=== PATIENT | female | born 1950 | race Caucasian/White ===

== ENCOUNTER → 2017-01-15 | Outpatient (CLI) | payer OTHER ==
[~2017-01-15] MED LIST: FLM4 PO; GLC/500 PO; HYZ/50125 PO; ULT50X PO; URC10 PO
--- NOTE | 2017-01-18 12:29 | MAMMOGRAPHY REPORT ---
BILATERAL DIGITAL SCREENING MAMMOGRAM WITH CAD: 01/15/2017 TECHNIQUE: Current study was also evaluated with a Computer Aided Detection (CAD) system. Bilateral CC and MLO views were obtained. COMPARISON: Comparison is made to exams dated: 03/12/2015 mammogram, 12/13/2013 mammogram, 10/18/2012 roxann mogram, 09/07/2011 mammogram, 09/03/2010 mammogram - [facility], and 09/19/2008. BREAST COMPOSITION: There are scattered areas of fibroglandular density in both breasts. FINDINGS: No suspicious masses, calcifications, or areas of architectural distortion are noted in ei ther breast. There has been no significant interval change compared to prior exams. Bilateral asymme tries are stable, including a nodular asymmetry in the left superior breast middle depth on the MLO v iew which is stable dating back to the 2007 exam. IMPRESSION: ACR BI-RADS CATEGORY 2: BENIGN There is no mammographic evidence of malignancy. A 1 year screening mammogram is recommended. The pa tient will receive written notification of the results. Approximately 10% of breast cancers are not detected with mammography. A negative mammographic report should not delay biopsy if a clinically suggestive mass is present. Sandra Burgos M.D. ah/:01/15/2017 16:14:56 Neon Sign Installer: Katheryn HANSEN)(M), [facility] letter sent: Normal 1/2 BI-RADS Code: ACR BI-RADS Category 2: Benign
== END | disposition home or self-care (01) ==
LOC: C.MAMM 12:45
PROVIDERS: ATTEND Obstetrics & Gynecology
DX: Z12.31 Encounter for screening mammogram for malignant neoplasm of breast (principal)

== ENCOUNTER 2021-09-02 08:31 | Observation (INO) ==
--- NOTE | 2021-03-20 10:28 | PAT Medication Instructions ---
Medication Instructions Date of Service March 20, 2021 Home Medications Medication Instructions Recorded 3-in-1 Commode #1 ea 03/13/21 Wheeled Walker #1 ea 03/13/21 aspirin 81 mg tablet 81 mg PO QAM cholecalciferol (vitamin D3) 25 mcg (1,000 unit) tablet (Vitamin D3) 25 mcg PO QDL dulaglutide 0.75 mg/0.5 mL subcutaneous pen injector (Trulicity) 0.75 mg SUBCUT WK losartan 50 mg-hydrochlorothiazide 12.5 mg tablet 1 tab PO QAM metformin 500 mg tablet 1,000 mg PO BID Centrum Silver Women 1 tab PO QDL rosuvastatin 5 mg tablet 5 mg PO 2XWK Continue as directed dulaglutide 0.75 mg/0.5 mL subcutaneous pen injector (Trulicity) 0.75 mg SUBCUT WK rosuvastatin 5 mg tablet 5 mg PO 2XWK DO NOT take the morning of surgery cholecalciferol (vitamin D3) 25 mcg (1,000 unit) tablet (Vitamin D3) 25 mcg PO QDL losartan 50 mg-hydrochlorothiazide 12.5 mg tablet 1 tab PO QAM metformin 500 mg tablet 1,000 mg PO BID Centrum Silver Women 1 tab PO QDL Take morning of surgery With a small sip of water, OTHERWISE NOTHING TO EAT OR DRINK AFTER MIDNIGHT: aspirin 81 mg tablet 81 mg PO QAM (continue as normal unless told otherwise by surgeon) Take evening before surgery metformin 500 mg tablet 1,000 mg PO BID Other Notes If you have any questions please call us at [phone] or [phone] or [phone] or [phone]
--- NOTE | 2021-03-21 13:24 | Anesthesiology Consultation ---
Date of Service March 21, 2021 Assessment & Plan (1) Encounter for pre-operative examination: - COVID screening: Per assessment on 03/21: Travel screen negative, no known COVID-19 positive contacts or current COVID-19 related symptoms. Patient vaccin ated. Surgeon arranging preop COVID testing. Awaiting results. 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 Reviewed with Dr. Mohamud. He does not feel that further cardiology evaluation and/or testing needed prior to surgery from his perspective. Chart Review Chart Review: Acceptable Risk for Surgery and Patient seen in Pre Admission Testing Teaching & Discussion Pre-Anesthesia Teaching/Discussion Notes: Instructed NPO after midnight before surgery,except medications with 15 cc of water. Medication instructions provided according to the PAT guidelines. History Surgery Operation Date: 04/15/21 07:00 Proposed Procedures p Right Total Knee Arthroplasty - Yony Marks MD Height/Weight Height: 5 ft 4 in Weight: 106 kg Allergies Allergy/AdvReac Type Severity Reaction Status Date / Time erythromycin base Allergy Intermediate Dyspnea Verified 03/20/21 16:22 ciprofloxacin Allergy Mild Rash Verified 03/20/21 16:22 nitrofurantoin Allergy Unknown Unknown Verified 03/18/21 14:49 lisinopril AdvReac Mild Cough Verified 03/20/21 16:22 Medications Home Medications Medication Instructions Recorded Confirmed Last Taken aspirin 81 mg tablet 81 mg PO QAM tab 03/18/19 03/18/21 Unknown 3-in-1 Commode #1 ea 03/13/21 03/18/21 Unknown Wheeled Walker #1 ea 03/13/21 03/18/21 Unknown cholecalciferol (vitamin D3) 25 25 mcg PO QDL 03/18/21 03/18/21 Unknown mcg (1,000 unit) tablet (Vitamin D3) dulaglutide 0.75 mg/0.5 mL 0.75 mg SUBCUT WK 03/18/21 03/18/21 Unknown subcutaneous pen injector (Trulicity) losartan 50 mg-hydrochlorothiazide 1 tab PO QAM 03/18/21 03/18/21 Unknown 12.5 mg tablet metformin 500 mg tablet 1,000 mg PO BID 03/18/21 03/18/21 Unknown multivit with 1 tab PO QDL 03/18/21 03/18/21 Unknown xzsopgcr-cflj-KI-lutein 8 mg iron-400 mcg-300 mcg tablet (Centrum Silver Women) rosuvastatin 5 mg tablet 5 mg PO 2XWK 03/18/21 03/18/21 Unknown Past Medical History Medical History BCC (basal cell carcinoma of skin) s/p excision CVA (cerebral vascular accident) Incidental findings of old infarct on head imaging several years DM type 2 (diabetes mellitus, type 2) NIDDM Endometrioid adenocarcinoma of uterus Dx 2012 Endometriosis GERD (gastroesophageal reflux disease) Occasional H/O hiatal hernia Hearing loss of both ears Hearing aids b/l History of COVID-19 Dx 05/2021 > symptoms at time of abdominal pain, elevated glucoses, headache, insomnia > resolved History of renal stone 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 Grandmother (Maternal) Colorectal cancer Mother Colorectal cancer Other No family history of adverse response to anesthesia Past Surgical History Surgical History H/O section H/O colonoscopy H/O dilation and curettage Multiple H/O laparoscopy Dx History of esophagogastroduodenoscopy (EGD) History of melanoma excision History of tonsillectomy History of tooth extraction History of wisdom tooth extraction S/P MIRIAN-BSO (total abdominal hysterectomy and bilateral salpingo-oophorectomy) Ace (2012) Past Anesthesia History No Hx of Anesthesia Complications and No Family Hx of Anesthesia Complications History of PONV No Hx of PONV and Hx of Motion Sickness (Occasional remote hx) Social History Smoking Status: Former smoker Do You Dip or Chew Tobacco: No Smoking End Date: Quit 12yrs ago (hx tobacco use < 1 PPD x 20 years) Hx Alcohol Use: Yes alcohol intake frequency: holidays/special occasions only Hx Substance Use: No substance use type: does not use Review of Systems Patient denies chest pain, shortness of breath, dyspnea on exertion, fever, chills, cough, wheezing, palpitations. Physical Exam Vital Signs VITALS BP 111/73 P 86 TEMP 97.3 SP02 95%RA RESP 16 PHYSICAL Full cervical extension range of motion. Full TMJ range of motion. TMD 3 finger breaths Mallampati Score 3 Dentition: several missing including lower front, possible chipped teeth/poor dentition per patient, + crowns Lungs: clear throughout to auscultation Cardiac: regular rate and rhythm, no murmurs noted Spine: normal Carotid arteries: negative bruit Extremities: no edema Lab Results Anesthesia Preop Results Results Anesthesia Widget: WBC 12.19 K/uL (4.8-10.8) H 03/21/21 Hgb 12.0 g/dL (12.0-16.0) 03/21/21 Hct 36.6 % (37-47) L 03/21/21 Plt 403 K/uL (130-400) H 03/21/21 Na 139 mmol/L (136-145) 03/21/21 K 3.7 mmol/L (3.5-5.1) 03/21/21 Cl 106 mmol/L (98-107) 03/21/21 CO2 27 mmol/L (21-32) 03/21/21 BUN 20 mg/dl (7-18) H 03/21/21 Creat 0.69 mg/dl (0.6-1.2) 03/21/21 Glucose Level 102 mg/dl (70-99) H 03/21/21 PT 10.6 Seconds (9.0-12.0) 03/21/21 PTT 25.0 Seconds (21.0-31.0) 03/21/21 INR 1.0 (0.9-1.1) 03/21/21 HA1c 7.5 % (4.5-5.6) H 03/21/21 Blood Type O Negative 03/21/21 Antibody Screen NEGATIVE 03/21/21 Lab Comments: Elevated WBC/hgba1c > will fax preop labs to PCP for continuity of care. Testing Electrocardiogram Date: 03/21/21 NSR at 80bpm. Rightward axis. Chest X-Ray Date: 03/21/21 Findings: + NAD
--- NOTE | 2021-08-30 19:01 | History and Physical Report ---
DATE OF ADMISSION: 09/02/2021. CHIEF COMPLAINT: Bilateral knee pain and discomfort, right side greater than left. HISTORY OF PRESENT ILLNESS: The patient is a 71-year-old female who presents for surgical treatment of her right knee. She has got a long history of knee problems treated extensively by multiple physi cians over the years. Most recently, she has been seen by Dr. Quintana. Shots provided some temporar y relief only and became less successful over time. She has global pain. The right knee is botherin g more than the left. It hurts her all the time. The more she walks, the more it hurts. It hurts m ore at the end of the day. She would like to have her knee fixed. She has been scheduled for surger y in the past, but canceled due to COVID epidemic. PAST MEDICAL HISTORY: Significant for: 1. Diabetes. 2. History of TIA, on aspirin. 3. Gastroesophageal reflux disease. 4. Obesity with BMI of 40. 5. Hiatal hernia. 6. Endometrial cancer. PAST SURGICAL HISTORY: Includes: 1. . 2. Laparoscopy. 3. MIRIAN/BSO. ALLERGIES: CIPRO, LISINOPRIL, ERYTHROMYCIN. CURRENT MEDICATIONS: Include: 1. Aspirin. 2. Diflucan. 3. Losartan. 4. Mobic. 5. Metformin. 6. Simvastatin. SOCIAL HISTORY: A 71-year-old female. Lives by herself. Does not smoke. No alcohol intake. FAMILY HISTORY: Noncontributory. REVIEW OF SYSTEMS: Significant for diabetes. She has a history of some TIAs, but no sequelae. On as pirin. No history of DVT or PE. PHYSICAL EXAMINATION: GENERAL: Shows a pleasant middle-aged female. Looks to be in reasonably good health. HEENT: Benign. NECK: Supple. No lymphadenopathy. LUNGS: Clear to auscultation. HEART: Has a regular rate and rhythm. ABDOMEN: Soft, nontender, nondistended. EXTREMITIES: Grossly neurovascularly intact except as follows. Examination of both knees revealed patient walks with a bit of a waddling gait. Examination of the r ight knee reveals varus deformity. It is tender with medial joint line. Small knee effusion. Range of motion about 10-110. No pain with hip motion. Examination of the left knee reveals varus deformity. Moderate soft tissue envelope. Tender with me dial joint line. Range of motion 5-125. No instability. X-RAYS: X-rays of both knees reveal advanced bilateral knee DJD. She has got complete loss of media l joint space in both knees with some tibial femoral subluxation. She has subchondral sclerosis. ASSESSMENT: A 71-year-old female with a history of diabetes, hypertension, transient ischemic attack s, gastroesophageal reflux disease and obesity with advanced bilateral knee degenerative joint diseas e. The right side is more symptomatic than the left. She has failed conservative treatment and woul d like to have her right knee replaced. PLAN: We are going to take her to the operating room and do a right total knee replacement. The ris ks and benefits of this procedure were explained to the patient include but not limited to DVT, PE, d eath, infection, neurological injury, vascular injury, bleeding problem, pain, limited range of motio n, stiffness, failure to relieve her symptoms, incomplete relief of symptoms, etc. The patient under stands and desires to proceed. Informed consent was obtained. We did talk to her about holding her metformin on the morning of surgery. Lives by herself, so she m ight need to go to a rehab postoperatively. Her daughter is going to come and stay with her at some point. Job ID: [id number]
[~2021-09-02 08:31] MED LIST changes: +ACETAMINOPHEN 500 MG TAB PO SCH; +ATROPINE SULFATE 0.1 MG/ML 10ML SYR IV PRN; +BUPIVACAINE 0.5 % 5 MG/1 ML PF 10ML VIAL ONE; +BUPIVACAINE LIPOSOME/PF 266 MG, BUPIVACAINE/EPINEPHRINE 50 ML, SODIUM CHLORIDE 0.9% 30 ... INFIL SCH; +EPINEPHrine INJ 1 MG/ML AMP ONE; +FAMOTIDINE 20 MG TAB PO SCH; -FLM4 PO; +GABAPENTIN 300 MG CAP PO SCH; -GLC/500 PO; +HYDROmorphone INJ 1 MG/ML SYRINGE IV PRN; -HYZ/50125 PO; +LABETALOL HCL IV 5 MG/ML 20ML IV PRN; +LR 500ML BOLUS, THEN 15ML/HR IV SCH; +LR 60ML/HR IV SCH; +MEPERIDINE HCL 25 MG/ML CARP/VIAL IV PRN; +METOCLOPRAMIDE HCL 10 MG TABLET PO SCH; +ONDANSETRON INJ 2 MG/ML 2 ML VIAL IV PRN; +PHENYLEPHRINE 100MCG/ML 5ML SYR IV PRN; +ROPIVACAINE 0.5% 5 MG/ML 30 ML VIAL ONE; +TRANEXAMIC ACID 1,000 MG **IV Intra-op IV SCH; -ULT50X PO; -URC10 PO; +ceFAZolin 2000MG 2,000 MG/15 ML SYR IV SCH; +ePHEDrine sulfate 50 MG/ML AMP IV PRN; +fentaNYL citrate 100 MCG/2 ML VIAL IV PRN
--- NOTE | 2021-09-02 08:57 | History & Physical Bridge Note ---
Date of Service September 02, 2021 History & Physical Bridge Note I have examined the patient, reviewed the History & Physical and in the interval since the performance of the History & Physical I have noted the following changes of clinical significance: no changes noted
[2021-09-02] MEDS ORDERED: MIDAZOLAM HCL 1 MG/ML 2ML VIAL ONE (09:33)
[2021-09-02] MEDS ORDERED: BUPIVACAINE 0.5 % 5 MG/1 ML PF 10ML VIAL ONE (10:26)
[2021-09-02] MEDS ORDERED: BUPIVACAINE LIPOSOME 1.3% 266 MG/20 ML VIAL ONE (11:31)
[2021-09-02] MEDS ORDERED: SODIUM CHLORIDE 0.9% PF 50 ML VIAL ONE (11:31)
[2021-09-02] MEDS ORDERED: BUPIVACAINE/EPINEPHRINE 0.25% 1:200,000 30 ML VIAL ONE (11:31)
[2021-09-02] MEDS ORDERED: LIDOCAINE 2% 2 ML VIAL/AMP(20MG/ML) INFIL ONE (12:12)
[2021-09-02] MEDS ORDERED: ONDANSETRON INJ 2 MG/ML 2 ML VIAL ONE (12:12)
[2021-09-02] MEDS ORDERED: PROPOFOL IV EMULSION 10 MG/ML 20 ML VIAL IV ONE (12:12)
--- NOTE | 2021-09-02 13:34 | Operative Report ---
PG Post Operative Report Pre & Post Diagnosis Operation Date: 05/07/21 07:15 <No data on this case meets the specified criteria> Operation Date: 09/02/21 10:40 Pre-Op Diagnosis: Right Knee Advanced Degenerative Joint Disease Post-Op Diagnosis: Right Knee Advanced Degenerative Joint Disease I identified the patient and participated in the time-out.: Yes Procedure Operation Date: 05/07/21 07:15 <No data on this case meets the specified criteria> Operation Date: 09/02/21 10:40 Actual Procedures p Right Total Knee Arthroplasty(Right) - Yony Marks MD Surgeon Yony Marks MD Sql Engineer Dejuan Kiran PA-C Estimated Blood Loss 50 Findings Consistent with Post-Op Diagnosis Operative findings were advanced right knee DJD. She had extensive grade 4 b one-on-bone disease in all 3 compartments with most severe findings medially. Osteophytes in all 3 compartments. Moderate-sized joint effusion. Fluids 1000 cc Specimens Right knee sent for pathology Anesthesia Type Spinal MAC Complications none Disposition Accompanied Patient To Recovery: No Indications Patient is a 71-year-old female said a long history of bilateral knee pain discomfort right side been a bit worse than left. She has been through extensive conservative treatment over the years which became less successful over time. X-rays show advanced right knee DJD. She elected to a surgical treatment. Description of Procedure Operative implants consist of: 1. Biomet Vanguard size 62.5 right posterior stabilized femoral component. 2. Biomet size 71 tibial tray. 3. 10 mm posterior stabilized polyethylene insert. 4. 28 x 8 all polypatella. Patient was taken to the operating, identified, placed on the operating table supine position with all contractors were properly padded. IV antibiotics tried by anesthesia team. A spinal anesthetic and abductor canal block had provided holding area. Gant catheter was placed in sterile fashion. Right thigh turn was then placed in the right lower extremities and prepped draped in usual sterile fashion. The right leg was elevated exsanguinated with use of an Esmarch in terms playset 300 mmHg. An anterior approach to the right knee was then performed to longitudinal incision centered over the patella. Sharp dissection was carried through subcutaneous tissue down to the extensor mechanism. A medial parapatellar arthrotomy incision was made. Some subperiosteal dissection was carried out medially. The fat pad was resected beneath patella tendon. Lateral patellofemoral ligament was released. Patella was subluxated laterally. The knee was flexed. The osteophytes were taken off distal femur. The ACL and PCL were then released in the distal femur the tibia subluxated anteriorly. The external tibial alignment jig was then placed in the interface the tibia and adjusted 14 mm medially. Proximal tibial cut was made remove about 2 to 3 mm of bone from the medial side. The tibia sized to a size 71. Some osteophytes taken off medial and posterior medially. Attention drawn the femur. The distal femur then with a sharp drop with intramedullary canal was suction. A right 5 degree valgus cutting guide was placed. Distal femoral cutting block was pinned in place. Distal femoral cut was made to take an additional 3 mm of bone off the distal femur. The femur was then sized to a size 62.5. The AP cutting block was pinned parallel to the epicondylar axis which was 3 degrees of external rotation. The anterior cut, anterior chamfer, posterior cut, posterior chamfer cuts were made. The box cutting guide was placed and adjusted slightly lateral and the box cut was made. The knee was flexed. The remnants of the medial and lateral menisci were excised. The osteophytes were taken off the posterior aspect of the femur. A trial femoral component was placed. The tibial tray was pinned in maximum external rotation and the drill and stem punch used to create defect in proximal tibia for the tibial tray. Knee was then trialed the 10 mm insert fit most appropriately. Attention drawn the patella. Patella was cleaned of all soft tissues. Patella thickness measured 22 mm in thickness was cut down to 13. Was sized to a size 28 patella. The lug holes were drilled for the 28 patella. Lateral osteophytes removed. Patella button was placed. Knee was taken through range of motion patella tracked nicely with no thumbs test. Attention drawn to placing permanent components. All trial components were removed. Bone plug was placed in the distal femur limit blood loss. A double batch of Palacos G cement was mixed. A Biomet Vanguard size 62.5 right posterior stabilized femoral component, size 71 tibial tray, 10 mm posterior stabilized polyethylene insert, and a 28 x 8 all polypatella then cemented in place. The knee was brought out into full extension until cement hardened. Final cement checkup then performed. The pericapsular tissues were injected with total 100 cc of combination of 20 cc of Exparel, 30 cc of normal saline, 50 cc of quarter percent Marcaine with epinephrine. The tourniquet was then let down for tourniquet time 56 minutes. Hemostasis surgeons electrocautery. The extensor mechanism then closed with combination 1 PDS suture #1 Vicryl suture in [id number] fashion. Extensor mechanism checked found to be intact. The subcutaneous tissue then closed with 2 Dexon suture in a buried interrupted fashion. Skin was closed skin tania. Leg was then cleaned and dried and sterile dressed with Xeroform, 4 x 4's, sterile cast padding, Kade bandage were applied. Patient then transferred to the recovery room in stable condition. Patient tolerated procedure well and there were no complications. Dejuan Kiran, my physician television production assistant, was present for the entire procedure. His assistance was essential and required for appropriate patient positioning, prepping and draping, surgical exposure, performing the technical details of the operation, placement the implants, closure of the wound, and placement of the sterile bandage. I attest to the content of the Intraoperative Record and any orders documented therein. Any exceptions are noted below.
[2021-09-02] MEDS ORDERED: GLUCAGON FOR INJ 1 MG VIAL SQ PRN (13:35)
[2021-09-02] MEDS ORDERED: GLUCOSE 10 TABS/TUBE PO PRN (13:35)
[2021-09-02] MEDS ORDERED: DEXTROSE 50% 50 ML SYRINGE IV PRN (13:35)
[2021-09-02] MEDS ORDERED: CARBOHYDRATES FOR HYPOGLYCEMIA PO PRN (13:35)
[2021-09-02] MEDS ORDERED: GLUCOSE 40% GEL 15 GM TUBE PO PRN (13:35)
--- NOTE | 2021-09-02 13:50 | XRay Report ---
RIGHT KNEE 2 VIEWS History: Right total knee arthroplasty. Degenerative arthritis. Postop. FINDINGS: The patient is status post a right total knee arthroplasty. The hardware is intact. No frac ture or dislocation. Skin tania are in place. IMPRESSION: Right total knee arthroplasty. No evidence for hardware complication. ACT 112: Negative or not required by law. Electronically signed by: Mike Martinez M.D. 09/02/2021 1:49 PM
--- NOTE | 2021-09-02 14:30 | Anesthesiology Progress Note ---
Date of Service September 02, 2021 Anesthesia Post Procedure Vital Signs Vital Signs: Temp Pulse Pulse Resp BP Pulse Ox 09/02/21 14:15 75 21 129/65 100 09/02/21 14:05 66 20 127/52 L 100 09/02/21 13:55 56 L 13 117/52 L 100 09/02/21 13:45 71 15 129/61 100 09/02/21 13:35 72 13 120/52 L 100 09/02/21 13:29 97.7 F 63 12 117/52 L 99 09/02/21 09:21 98.1 F 88 20 159/79 H 95 Transfer of Care Handoff Completed per policy Notes Mental Status: alert / awake / arousable and participated in evaluation Patient Amnestic to Procedure: Yes Nausea / Vomiting: adequately controlled Pain: adequately controlled Airway Patency, RR, SpO2: stable & adequate BP & HR: stable & adequate Hydration State: stable & adequate Neuraxial Anesthesia: was administered and sensory block is resolving Anesthetic Complications: no major complications apparent and Pt Satisfied with anesthetic care
[2021-09-02] MEDS ORDERED: PHARMACY GLYCEMIC MGMT CONSULT PRN (14:52)
[2021-09-02] MEDS ORDERED: HYDROmorphone INJ 0.5 MG/0.5 ML SYR IV PRN (14:52)
[2021-09-02] MEDS ORDERED: MAGNESIUM HYDROXIDE SUSP 30 ML UDC PO PRN (14:52)
[2021-09-02] MEDS ORDERED: ALUMINUM/MAGNESIUM SUSP 30 ML UDC PO PRN (14:52)
[2021-09-02] MEDS ORDERED: NON-FORMULARY MEDICATION (Amino Acids [Amino Acid] Capsule) PO SCH (14:52)
[2021-09-02] MEDS ORDERED: METOCLOPRAMIDE HCL INJ 5 MG/ML 2 ML VIAL IV PRN (14:52)
[2021-09-02] MEDS ORDERED: bisacodyL 10 MG SUPP PR PRN (14:52)
[2021-09-02] MEDS ORDERED: NALOXONE HCL 0.4 MG/1 ML VIAL/CARP IV PRN (14:52)
[2021-09-02] MEDS: oxyCODONE HCL IR 5 MG TAB (IMMEDIATE RELEASE) PO PRN (15:16)
[2021-09-02] MEDS ORDERED: ONDANSETRON 4 MG OD TAB PO PRN (15:40)
[2021-09-02] MEDS: SODIUM CHLORIDE 0.9% 1000ML 1,000 ML IV SCH (15:48)
[2021-09-02] MEDS: ACETAMINOPHEN 500 MG TAB PO SCH ×2 (16:58→23:04)
[2021-09-02] MEDS: KETOROLAC TROMETHAMINE 15 MG/ML VIAL IV SCH ×2 (16:59→23:04)
[2021-09-02] MEDS: INSULIN ASPART PER UNIT SC SCH ×2 (17:57→21:27)
[2021-09-02] MEDS ORDERED: TRANEXAMIC ACID / 0.7% NACL 1,000 MG/100 ML BAG IV SCH (19:30)
[2021-09-02] MEDS: ceFAZolin 2000MG 2,000 MG/15 ML SYR IV SCH (20:15)
[2021-09-02] MEDS: DOCUSATE SODIUM 100 MG CAP PO SCH (20:19)
[2021-09-02] MEDS: SENNA 8.6 MG TAB PO SCH (20:19)
[2021-09-02] MEDS: ASPIRIN 81 MG ECTAB PO SCH (20:20)
[2021-09-02] MEDS: ONDANSETRON INJ 2 MG/ML 2 ML VIAL IV PRN (20:46)
[2021-09-03] MEDS: KETOROLAC TROMETHAMINE 15 MG/ML VIAL IV SCH ×4 (03:53→21:13)
[2021-09-03] MEDS: ceFAZolin 2000MG 2,000 MG/15 ML SYR IV SCH (03:53)
[2021-09-03] MEDS: SODIUM CHLORIDE 0.9% 1000ML 1,000 ML IV SCH (03:54)
[2021-09-03] MEDS: ACETAMINOPHEN 500 MG TAB PO SCH ×3 (05:22→21:12)
[2021-09-03 06:04] LABS: Hematocrit (blood only) 30.5 % (37-47); Hemoglobin 9.9 g/dL (12.0-16.0); Mean Corpuscular Hemoglobin 28.2 pg (25-34); Mean Corpuscular Hgb Conc 32.5 g/dL (32-36); Mean Corpuscular Volume 86.9 fL (80-100); Mean Platelet Volume 9.5 fL (7.4-10.4); Platelet Count 314 K/uL (130-400); RDW Coefficient of Variation 14.7 % (11.5-14.5); RDW Standard Deviation 46.4 fL (36.4-46.3); Red Blood Count 3.51 M/uL (4.2-5.4); White Blood Count 12.21 K/uL (4.8-10.8)
[2021-09-03 06:25] LABS: BUN Creatinine Ratio 34.6 (10-20); Calcium 8.4 mg/dl (8.5-10.1); Creatinine Clr Calc Pharmacy 77.9 ml/min; Potassium 3.2 mmol/L (3.5-5.1)
[2021-09-03] MEDS: oxyCODONE HCL IR 5 MG TAB (IMMEDIATE RELEASE) PO PRN ×3 (07:47→22:12)
[2021-09-03] MEDS: LOSARTAN/HCTZ 50/12.5MG TAB PO SCH (07:48)
[2021-09-03] MEDS: DOCUSATE SODIUM/SENNA 50/8.6MG TAB PO SCH (07:48)
[2021-09-03] MEDS: DOCUSATE SODIUM 100 MG CAP PO SCH ×2 (07:48→21:12)
[2021-09-03] MEDS: ASPIRIN 81 MG ECTAB PO SCH ×2 (07:48→21:08)
[2021-09-03] MEDS ORDERED: MULTIVITAMIN TAB PO SCH (09:00)
[2021-09-03] MEDS ORDERED: metFORMIN HCL 500 MG TAB PO ONE (09:00)
[2021-09-03] MEDS: INSULIN ASPART PER UNIT SC SCH ×4 (09:52→21:36)
[2021-09-03] MEDS: ONDANSETRON INJ 2 MG/ML 2 ML VIAL IV PRN (09:56)
[2021-09-03] MEDS ORDERED: POTASSIUM CHLORIDE CRTAB 20 MEQ TABCR PO ONE ×2 (11:15→18:00)
--- NOTE | 2021-09-03 12:17 | Pharmacy Report ---
Pharmacy Glycemic Short Note 2 - Date of Service September 03, 2021 - Glycemic Short BSG Results (Last 24 hours): 09/02/21 09/02/21 09/02/21 13:34 16:50 21:11 Glucose POC Glucose 116 H 171 H 185 H 09/03/21 09/03/21 09/03/21 05:33 08:16 12:07 Glucose 171 H POC Glucose 132 H 156 H OUTPATIENT ANTIDIABETIC REGIMEN: * Metformin 1000 mg PO BID * Trulicity 0.75 mg SQ weekly * A1c = 7.5% ASSESSMENT: * Lynne is POD #1 s/p R TKA * She was started on SQ novolog yesterday based on weight/stress of 2 (received a total of 8 units) * I have resumed her metformin since she is tolerating an oral diet and Scr is at baseline. * May need to loosen/remove carb ratio with metformin on board PLAN FOR INPATIENT GLYCEMIC CONTROL: * Restart metformin 1000 mg PO BID * Basal insulin * none * Bolus insulin * NovoLog per scale ACHS or Q6hrs while NPO * Goal Range: Low 110 mg/dL - High 140 mg/dL * Correction Factor: 20 mg/dL/unit * Nutritional / Prandial insulin per carb ratio of 1 unit per 8 grams CHO consumed
[2021-09-03] MEDS: CEROVITE ADV FORMULA TAB PO SCH (12:18)
[2021-09-03] MEDS: CHOLECALCIFEROL 1,000 UNITS 25 MCG TAB PO SCH (12:18)
[2021-09-03] MEDS: metFORMIN HCL 500 MG TAB PO SCH (17:19)
--- NOTE | 2021-09-03 18:19 | Progress Notes ---
DATE OF SERVICE: 09/03/2021. SUBJECTIVE: A 71-year-old white female postoperative day 1 from right knee replacement. She is doin g pretty well. Having a little bit of nausea and that is about it. No chest pain or shortness of br eath. Not feeling dizzy or lightheaded. Therapy went reasonably well today. OBJECTIVE: VITAL SIGNS: Temperature 36.6. Vital signs are stable. GENERAL: Shows a pleasant, elderly female. She is sitting up in bed and looks pretty comfortable. EXTREMITIES: Examination of the right leg reveals the dressing to be clean, dry and intact. She can dorsiflex and plantarflex her foot appropriately. She has got brisk refill. LABORATORY DATA: Hemoglobin 9.9. Hematocrit 30.5. Electrolytes are stable. Potassium is a little bit low. ASSESSMENT: A 71-year-old female postoperative day 1 from right knee replacement, doing pretty well. Pain is controlled. Therapy went pretty well. A little nausea, possibly related to the pain medic ine. Potassium is a little bit low and we will supplement that. PLAN: 1. DVT prophylaxis includes thigh-high TEDs, SCDs, and aspirin twice a day. 2. PT, OT, weightbear as tolerated. Right total knee protocol. 3. Pain control, doing okay with current pain regimen. 4. Hypokalemia. We will supplement that and recheck her potassium in the morning. 5. Disposition: She is hoping to go to rehabilitation. She is going to go to [facility]. She is ho ping to go there tomorrow. Job ID: [id number]
[2021-09-03] MEDS: SENNA 8.6 MG TAB PO SCH (21:08)
[2021-09-04] MEDS: KETOROLAC TROMETHAMINE 15 MG/ML VIAL IV SCH ×2 (04:51→10:43)
[2021-09-04] MEDS: ACETAMINOPHEN 500 MG TAB PO SCH ×2 (04:51→13:15)
[2021-09-04] MEDS: oxyCODONE HCL IR 5 MG TAB (IMMEDIATE RELEASE) PO PRN (05:26)
[2021-09-04] MEDS: INSULIN ASPART PER UNIT SC SCH ×2 (08:48→13:03)
[2021-09-04] MEDS: ASPIRIN 81 MG ECTAB PO SCH (08:49)
[2021-09-04] MEDS: LOSARTAN/HCTZ 50/12.5MG TAB PO SCH (08:49)
[2021-09-04] MEDS: metFORMIN HCL 500 MG TAB PO SCH (08:49)
[2021-09-04] MEDS: DOCUSATE SODIUM/SENNA 50/8.6MG TAB PO SCH (08:54)
[2021-09-04] MEDS: DOCUSATE SODIUM 100 MG CAP PO SCH (08:54)
[2021-09-04] MEDS: CEROVITE ADV FORMULA TAB PO SCH (10:43)
[2021-09-04] MEDS: CHOLECALCIFEROL 1,000 UNITS 25 MCG TAB PO SCH (10:43)
--- NOTE | 2021-09-04 11:48 | Progress Notes ---
DATE OF SERVICE: 09/04/2021. SUBJECTIVE: A 71-year-old white female now postop day 2 from knee replacement. She is doing pretty well. The nausea seems to be improved. Her dressing was removed and had little pain with that, but doing better now. No chest pain or shortness of breath. Not feeling dizzy or lightheaded. OBJECTIVE: VITAL SIGNS: Temperature 36.9. Vital signs are stable. PHYSICAL EXAMINATION: GENERAL: Shows a pleasant middle-aged female. She is sitting up in bed and looks pretty comfortable this morning. EXTREMITIES: Examination of the right leg reveals the dressing to be clean, dry and intact. She can dorsiflex and plantarflex her foot appropriately. She is neurologically intact. Just a little bit of bruising on the skin. Calf is soft and supple. ASSESSMENT: A 71-year-old white female postoperative day 2 from a right knee replacement, doing reas onably well. Pain is controlled. PLAN: 1. DVT prophylaxis includes thigh-high TEDs, SCDs, and aspirin twice a day. 2. PT, OT, weightbear as tolerated. ____ total knee protocol. 3. Pain control, doing okay with current pain regimen. 4. Disposition: She is planning to go to [facility]. I think arrangements are made for her t o leave today. She has a ride. I will see her back 2 weeks postop. Job ID: [id number]
[2021-09-04] MEDS ORDERED: ONDANSETRON 4 MG OD TAB ONE (13:14)
[2021-09-05] MEDS ORDERED: ROSUVASTATIN CALCIUM 5 MG TAB PO SCH (09:00)
== END 2021-09-04 13:50 ==
LOC: PACUINP 08:31 → ASU 08:31 → 3E 15:48

== ENCOUNTER 2023-02-16 09:04 | Observation (INO) ==
--- NOTE | 2023-01-19 14:39 | PAT Medication Instructions ---
Medication Instructions Date of Service January 19, 2023 Home Medications Medication Instructions Recorded 3-in-1 Commode #1 ea 03/13/21 Wheeled Walker #1 ea 03/13/21 Zachary Urbane #1 ea 09/18/21 tramadol 50 mg tablet 50 mg PO Q6H PRN pain #30 tabs 09/18/21 losartan 50 mg-hydrochlorothiazide 12.5 mg tablet 1 tab PO QAM metformin 500 mg tablet 1,000 mg PO BID wogefryx-jmfm-dlrh 8 mg-folic 400 mcg-K 50 mcg-lutein 300 mcg tablet (Centrum Silver Women) 1 tab PO QAM rosuvastatin 5 mg tablet 5 mg PO UD tramadol 50 mg tablet 50 mg PO Q6H PRN pain amoxicillin 500 mg tablet 2,000 mg PO UD PRN dental work aspirin 81 mg tablet,delayed release (Adult Aspirin Regimen) 81 mg PO QAM dulaglutide 1.5 mg/0.5 mL subcutaneous pen injector (Trulicity) 1.5 mg subcut Q7D fluconazole 150 mg tablet (Diflucan) 150 mg PO Q3D PRN yeast infections nystatin-triamcinolone 100,000 unit/g-0.1 % topical cream 1 applic topical BID PRN Skin Irritation Continue as directed rosuvastatin 5 mg tablet 5 mg PO UD amoxicillin 500 mg tablet 2,000 mg PO UD PRN dental work (if needed) dulaglutide 1.5 mg/0.5 mL subcutaneous pen injector (Trulicity) 1.5 mg subcut Q 7D fluconazole 150 mg tablet (Diflucan) 150 mg PO Q3D PRN yeast infections (if needed) STOP taking 24 hours before surgery nystatin-triamcinolone 100,000 unit/g-0.1 % topical cream 1 applic topical BID PRN Skin Irritation DO NOT take the morning of surgery losartan 50 mg-hydrochlorothiazide 12.5 mg tablet 1 tab PO QAM metformin 500 mg tablet 1,000 mg PO BID tijquwcr-zjnt-kudm 8 mg-folic 400 mcg-K 50 mcg-lutein 300 mcg tablet (Centrum Silver Women) 1 tab PO QAM Take morning of surgery With a small sip of water, OTHERWISE NOTHING TO EAT OR DRINK AFTER MIDNIGHT: tramadol 50 mg tablet 50 mg PO Q6H PRN pain (if needed) aspirin 81 mg tablet,delayed release (Adult Aspirin Regimen) 81 mg PO QAM (unless surgeon directed otherwise) Take evening before surgery metformin 500 mg tablet 1,000 mg PO BID tramadol 50 mg tablet 50 mg PO Q6H PRN pain (if needed) Other Notes If you have any questions please call us at [phone] or [phone] or [phone] or [phone]
--- NOTE | 2023-01-28 10:33 | Anesthesiology Consultation ---
Date of Service January 28, 2023 Assessment & Plan (1) Encounter for pre-operative examination: - Check BSG AM DOS - COVID screening: Per assessment on 01/28: No known COVID-19 positive contacts or current COVID-19 related symptoms. No recent Covid positive test result. - Outpatient joint assessment: Pt currently scheduled for inpatient pathway. If surgeon requests review for outpatient joint pathway, patient is not recommended candidate for outpatient joint program from anesthesia standpoint. - Patient seen at [facility] 03/21/21 prior to Right TKA performed 09/02/21 at [facility]. 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 Reviewed with Dr. Mohamud. He does not feel that further cardiology evaluation and/or testing needed prior to surgery from his perspective." > Right TKA done 09/02/21: SAB at L4-5 (x1 attempt) + PNB at [facility] without issue. Preop EKG performed 01/28/23 NSR at 74bpm, "normal ECG" per pals nurse interpretation. Chart Review Chart Review: Acceptable Risk for Surgery (pending evaluation DOS) and Patient seen in Pre Admission Testing Teaching & Discussion Pre-Anesthesia Teaching/Discussion Notes: Instructed NPO after midnight before surgery,except medications with 15 cc of water. Medication instructions provided according to the [facility] guidelines. History Surgery Operation Date: 02/16/23 09:20 Proposed Procedures p Left Total Knee Arthroplasty - Yony Marks MD Height/Weight Height: 5 ft 4 in Weight: 106.8 kg Allergies Allergy/AdvReac Type Severity Reaction Status Date / Time erythromycin base Allergy Intermediate Dyspnea Verified 01/18/23 10:49 ciprofloxacin Allergy Mild Rash Verified 01/18/23 10:49 nitrofurantoin Allergy Unknown Unknown Verified 01/18/23 10:49 lisinopril AdvReac Mild Cough Verified 01/18/23 10:49 codeine AdvReac Nausea Verified 01/28/23 10:43 Medications Home Medications Medication Instructions Recorded Confirmed Last Taken 3-in-1 Commode #1 ea 03/13/21 03/31/22 Unknown Wheeled Walker #1 ea 03/13/21 03/31/22 Unknown losartan 50 mg-hydrochlorothiazide 1 tab PO QAM 03/18/21 01/18/23 09/01/21 08:00 12.5 mg tablet metformin 500 mg tablet 1,000 mg PO BID 03/18/21 01/18/23 09/01/21 21:00 kzottocr-euhj-ksdg 8 mg-folic 400 1 tab PO QAM 03/18/21 01/18/23 08/19/21 mcg-K 50 mcg-lutein 300 mcg tablet (Centrum Silver Women) rosuvastatin 5 mg tablet 5 mg PO UD 03/18/21 01/18/23 Unknown Zachary Rajnie #1 ea 09/18/21 03/31/22 Unknown tramadol 50 mg tablet 50 mg PO Q6H PRN pain #30 tabs 09/18/21 01/18/23 Unknown amoxicillin 500 mg tablet 2,000 mg PO UD PRN dental work 01/18/23 01/18/23 Unknown aspirin 81 mg tablet,delayed 81 mg PO QAM 01/18/23 01/18/23 Unknown release (Adult Aspirin Regimen) dulaglutide 1.5 mg/0.5 mL 1.5 mg subcut Q7D 01/18/23 01/18/23 Unknown subcutaneous pen injector (Trulicity) fluconazole 150 mg tablet 150 mg PO Q3D PRN yeast infections 01/18/23 01/18/23 Unknown (Diflucan) nystatin-triamcinolone 100,000 1 applic topical BID PRN Skin 01/18/23 01/18/23 Unknown unit/g-0.1 % topical cream Irritation Past Medical History Medical History BCC (basal cell carcinoma of skin) s/p excision Chronic anemia Hgb baseline 9-11 range per chart review CVA (cerebral vascular accident) Incidental findings of old infarct on head imaging several years DM type 2 (diabetes mellitus, type 2) NIDDM Endometrioid adenocarcinoma of uterus Dx 2012, stage I, s/p surgery (No chemo or XRT) GERD (gastroesophageal reflux disease) Occasional H/O hiatal hernia Hearing loss of both ears Hearing aids b/l "can't hear much without them" History of COVID-19 05/2020- symptoms at time of abdominal pain, elevated glucoses, headache, insomnia > resolved, except "her type 2 diabetes is worse" History of renal stone passed on own History of Gqluq-Mdpcxqoro-Edpgp syndrome Dx age 30s but then "disappeared" No recent or current issues, no longer following with cardiology Migraine Hx Morbid obesity Osteoarthritis Exercise / Class Metabolic Activity II 4-5 Yardwork/Stairs/Walk up hill (one FS (no CP, no SOB)) Past Family History Family History Grandfather (Maternal) No problems noted. Grandmother (Maternal) Colorectal cancer Mother Colorectal cancer Other No family history of adverse response to anesthesia Past Surgical History Surgical History H/O section H/O colonoscopy 12/31/20 H/O dilation and curettage Multiple H/O laparoscopy Dx History of esophagogastroduodenoscopy (EGD) History of melanoma excision History of tonsillectomy History of tooth extraction History of total right knee replacement History of wisdom tooth extraction S/P MIRIAN-BSO (total abdominal hysterectomy and bilateral salpingo-oophorectomy) Ace (2012) with removal lymph nodes Past Anesthesia History No Hx of Anesthesia Complications and No Family Hx of Anesthesia Complications History of PONV No Hx of PONV and Hx of Motion Sickness (Remote) Social History Smoking Status: Former smoker Do You Dip or Chew Tobacco: No Smoking End Date: Quit years ago Hx Alcohol Use: Yes alcohol intake frequency: holidays/special occasions only Hx Substance Use: No substance use type: does not use Review of Systems Patient denies chest pain, shortness of breath, dyspnea on exertion, fever, chills, cough, wheezing, palpitations. Physical Exam Vital Signs VITALS BP 112/74 P 78 TEMP 98.1 SP02 96%RA RESP 18 PHYSICAL Full cervical extension range of motion. Full TMJ range of motion. TMD 3 finger breaths Mallampati Score 3 Dentition: several missing sides/molars, + crowns Lungs: clear throughout to auscultation Cardiac: regular rate and rhythm, no murmurs noted Spine: normal Carotid arteries: negative bruit Extremities: no LE edema Lab Results Anesthesia Preop Results Results Anesthesia Widget: WBC 7.38 K/ul (4.8-10.8) 01/28/23 Hgb 10.7 g/dl (12.0-16.0) L 01/28/23 Hct 32.7 % (37.0-47.0) L 01/28/23 Plt 310 K/uL (130-400) 01/28/23 Na 141 mmol/L (136-145) 01/28/23 K 3.3 mmol/L (3.5-5.1) L 01/28/23 Cl 106 mmol/L (98-107) 01/28/23 CO2 27 mmol/L (21-32) 01/28/23 BUN 19 mg/dl (6-23) 01/28/23 Creat 0.60 mg/dl (0.6-1.2) 01/28/23 Glucose Level 129 mg/dl (70-99(Fasting)) H 01/28/23 PT 11.9 Seconds (9.0-12.0) 01/28/23 PTT 26.1 Seconds (21.0-31.0) 01/28/23 INR 1.1 (0.9-1.1) 01/28/23 HA1c 7.3 % (4.5-5.6) H 01/28/23 Blood Type O Negative 01/28/23 Antibody Screen NEGATIVE 01/28/23 Testing Electrocardiogram Date: 01/28/23 NSR at 74bpm. "Normal ECG" Chest X-Ray Date: 01/28/23 FINDINGS: Cardiac silhouette is enlarged. Hiatal hernia. Eventration of the right hemidiaphragm. No pneumothorax, pleural effusion, airspace consolidation or pulmonary edema. Spondylotic spurring of the spine. Bones appear grossly intact. IMPRESSION: No acute process of the chest. Hiatal hernia.
--- NOTE | 2023-02-13 09:59 | History & Physical Report ---
Date of Service February 13, 2023 Assessment & Plan (1) Status post total right knee replacement: (2) Left knee DJD: 72-year-old female 17+ months out from right knee replacement with advanced left knee DJD. Has failed conservative treatment. She would like to proceed with left knee replacement. Plan: We will take her to the operating do left total knee replacement. The risks Mente this procedure explained the patient clued but not limited to DVT PE infection neurological and vascular bleeding palm pain limb range of motion test is fairly of symptoms incomplete relief of symptoms etc. The patient understands and desires to proceed. Informed consent is obtained. She knows to hold her metformin the morning of surgery. [facility] for short rehab stay and she like to do that again. Her daughter will come and stay with her after that. History of Present Illness Chief Complaint: . Persistent left knee pain and discomfort Primary Care Provider: Bobby Loaiza DO . Patient is a 72-year-old female returns for follow-up of her knees and surgical treatment of the left knee. She is now about 17 to 18 months out from a right knee replacement and is done well from this. She continues to be limited by left knee pain this has been bothering her for years. She been through extensive conservative treatment which helped her very limited. She is very happy with the right knee would like to have her left knee replaced. Allergies Allergy/AdvReac Type Severity Reaction Status Date / Time erythromycin base Allergy Intermediate Dyspnea Verified 01/18/23 10:49 ciprofloxacin Allergy Mild Rash Verified 01/18/23 10:49 nitrofurantoin Allergy Unknown Unknown Verified 01/18/23 10:49 lisinopril AdvReac Mild Cough Verified 01/18/23 10:49 codeine AdvReac Nausea Verified 01/28/23 10:43 Home Medications Medication Instructions Recorded Confirmed Type 3-in-1 Commode #1 ea 03/13/21 03/31/22 Rx Wheeled Walker #1 ea 03/13/21 03/31/22 Rx losartan 50 mg-hydrochlorothiazide 1 tab PO QAM 03/18/21 01/18/23 History 12.5 mg tablet metformin 500 mg tablet 1,000 mg PO BID 03/18/21 01/18/23 History uksyzeuq-zzux-hash 8 mg-folic 400 1 tab PO QAM 03/18/21 01/18/23 History mcg-K 50 mcg-lutein 300 mcg tablet (Centrum Silver Women) rosuvastatin 5 mg tablet 5 mg PO UD 03/18/21 01/18/23 History Zachary Hose #1 ea 09/18/21 03/31/22 Rx tramadol 50 mg tablet 50 mg PO Q6H PRN pain #30 tabs 09/18/21 01/18/23 Rx amoxicillin 500 mg tablet 2,000 mg PO UD PRN dental work 01/18/23 01/18/23 History aspirin 81 mg tablet,delayed 81 mg PO QAM 01/18/23 01/18/23 History release (Adult Aspirin Regimen) dulaglutide 1.5 mg/0.5 mL 1.5 mg subcut Q7D 01/18/23 01/18/23 History subcutaneous pen injector (Trulicity) fluconazole 150 mg tablet 150 mg PO Q3D PRN yeast infections 01/18/23 01/18/23 History (Diflucan) nystatin-triamcinolone 100,000 1 applic topical BID PRN Skin 01/18/23 01/18/23 History unit/g-0.1 % topical cream Irritation Past Med/Surg History Medical History (Updated 02/13/23 @ 09:58 by Yony Marks MD) BCC (basal cell carcinoma of skin) s/p excision Chronic anemia Hgb baseline 9-11 range per chart review CVA (cerebral vascular accident) Incidental findings of old infarct on head imaging several years DM type 2 (diabetes mellitus, type 2) NIDDM Endometrioid adenocarcinoma of uterus Dx 2012, stage I, s/p surgery (No chemo or XRT) GERD (gastroesophageal reflux disease) Occasional H/O hiatal hernia Hearing loss of both ears Hearing aids b/l "can't hear much without them" History of COVID-19 05/2020- symptoms at time of abdominal pain, elevated glucoses, headache, insomnia > resolved, except "her type 2 diabetes is worse" History of renal stone passed on own History of Frnef-Lrhzohnlg-Rbxms syndrome Dx age 30s but then "disappeared" No recent or current issues, no longer following with cardiology Left knee DJD Migraine Hx Morbid obesity Osteoarthritis Surgical History H/O section H/O colonoscopy 12/31/20 H/O dilation and curettage Multiple H/O laparoscopy Dx History of esophagogastroduodenoscopy (EGD) History of melanoma excision History of tonsillectomy History of tooth extraction History of total right knee replacement History of wisdom tooth extraction S/P MIRIAN-BSO (total abdominal hysterectomy and bilateral salpingo-oophorectomy) Ace (2012) with removal lymph nodes Family History Grandfather (Maternal) No problems noted. Grandmother (Maternal) Colorectal cancer Mother Colorectal cancer Other No family history of adverse response to anesthesia Social History Smoking Status: Former smoker Smoking End Date: Quit years ago; Second Hand Exposure: No; Do You Dip or Chew Tobacco: No; Tobacco Cessation Education Requested by Patient: No Hx Alcohol Use: Yes Hx Substance Use: No Preferred Language: Frisian Communication Ability: Effective Hearing Ability: Use of Hearing Aid Motel Maid Required: No Beliefs That Will Affect Care: None marital status: Unknown Current Living Situation: Alone current occupational status: retired Other Information That Helps Us Care for You: No Feels Safe at Home: Yes Safety Concerns: Feels Safe At This Time Assistive Devices: Glasses and Hearing Aid - Bilateral Review of Systems All systems reviewed & are unremarkable except as noted in HPI & below. Physical Exam . Physical examination of the left knee reveals patient ambulates independently. She does seem to limp on this left side. Is got a moderate soft tissue envelope. She had varus alignment to her knee. She is tender over the medial joint line. Range of motion is 10 degrees short of full extension to 110 degrees of flexion. A bit stiff with flexion. No pain with hip motion. Examination the right knee reveals well-healed incision. No swelling. I range of motion 0-1 20. Constitutional WD/WN, vitals as above Respiratory normal respiratory effort, lungs clear to auscultation Cardiovascular RRR, no murmur, no edema Results & Data Results & Data Laboratory Results . Diagnostic Findings . X-rays of the left knee were reviewed. She has advanced left knee tricompartment DJD. She got complete loss of medial joint space to get osteophytes in all 3 compartments. The right knee replacement looks to be in good position without problems. PG Care Time/CCT Total # of Minutes Spent Total Time Spent with Patient: Total time spent is greater than 50% in coordination of care (as documented) at patient's floor/unit and/or counseling patient: Coding Level of Care Code None Diagnoses Status post total right knee replacement Z96.651 Left knee DJD M17.12
[~2023-02-16 09:04] MED LIST changes: -ATROPINE SULFATE 0.1 MG/ML 10ML SYR IV PRN; +BUPIVACAINE 0.25% PF 30 ML VIAL ONE; -BUPIVACAINE LIPOSOME/PF 266 MG, BUPIVACAINE/EPINEPHRINE 50 ML, SODIUM CHLORIDE 0.9% 30 ... INFIL SCH; +CeleBREX 200 MG CAP PO SCH; -EPINEPHrine INJ 1 MG/ML AMP ONE; -GABAPENTIN 300 MG CAP PO SCH; -HYDROmorphone INJ 1 MG/ML SYRINGE IV PRN; -LABETALOL HCL IV 5 MG/ML 20ML IV PRN; -MEPERIDINE HCL 25 MG/ML CARP/VIAL IV PRN; -ONDANSETRON INJ 2 MG/ML 2 ML VIAL IV PRN; -PHENYLEPHRINE 100MCG/ML 5ML SYR IV PRN; -ROPIVACAINE 0.5% 5 MG/ML 30 ML VIAL ONE; +ROPIVACAINE 0.5% HCL/PF 150 MG, BUPIVACAINE 0.75% MPF 20 ML, EPINEPHrine 30MG/30ML (OR ... INSTIL SCH; +dexAMETHasone 4 MG TAB PO SCH; -ePHEDrine sulfate 50 MG/ML AMP IV PRN; -fentaNYL citrate 100 MCG/2 ML VIAL IV PRN
--- NOTE | 2023-02-16 09:14 | History & Physical Bridge Note ---
Date of Service February 16, 2023 History & Physical Bridge Note I have examined the patient, reviewed the History & Physical and in the interval since the performance of the History & Physical I have noted the following changes of clinical significance: no changes noted
[2023-02-16] MEDS ORDERED: ONDANSETRON INJ 2 MG/ML 2 ML VIAL IV PRN ×2 (09:45→14:29)
[2023-02-16] MEDS ORDERED: ePHEDrine sulfate 50 MG/ML AMP IV PRN (09:45)
[2023-02-16] MEDS ORDERED: ATROPINE SULFATE 0.1 MG/ML 10ML SYR IV PRN (09:45)
[2023-02-16] MEDS ORDERED: PROPOFOL IV EMULSION 10 MG/ML 20 ML VIAL IV ONE ×3 (09:52→12:28)
[2023-02-16] MEDS ORDERED: MIDAZOLAM HCL 1 MG/ML 2ML VIAL ONE (09:53)
[2023-02-16] MEDS ORDERED: ONDANSETRON INJ 2 MG/ML 2 ML VIAL ONE ×2 (11:39→11:40)
[2023-02-16] MEDS ORDERED: KETAMINE 50 MG/5 ML SYRINGE ONE (11:39)
[2023-02-16] MEDS ORDERED: GLYCOPYRROLATE 0.2 MG/ML VIAL ONE (11:48)
[2023-02-16] MEDS: BUPIVACAINE LIPOSOME 1.3% 266 MG/20 ML VIAL ONE ×2 (12:32→12:36)
[2023-02-16] MEDS: BUPIVACAINE/EPINEPHRINE 0.25% 1:200,000 30 ML VIAL ONE ×2 (12:32→12:38)
[2023-02-16] MEDS: SODIUM CHLORIDE 0.9% PF 50 ML VIAL ONE ×2 (12:32→12:39)
--- NOTE | 2023-02-16 13:11 | Operative Report ---
PG Post Operative Report Pre & Post Diagnosis Operation Date: 02/16/23 10:40 Pre-Op Diagnosis: Left Knee Degenerative Joint Disease Post-Op Diagnosis: Left Knee Degenerative Joint Disease I identified the patient and participated in the time-out.: Yes Procedure Operation Date: 02/16/23 10:40 Actual Procedures p Left Total Knee Arthroplasty(Left) - Yony Marks MD Surgeon Yony Marks MD Rn Security Dejuan Kiran PA-C Estimated Blood Loss 50 Findings Consistent with Post-Op Diagnosis Operative findings were advanced left knee tricompartment DJD. She had extensive grade 4 ojru-br-rbzr disease in the medial side of her knee. She had spotty grade 4 changes in the lateral and patellofemoral compartments. She had a varus deformity to her knee with a moderate-sized knee joint effusion. Specimens Left knee sent for pathology Drains None Anesthesia Type Spinal MAC Complications none Disposition Accompanied Patient To Recovery: No Indications Patient is a 72-year-old female had a long history of bilateral knee pain discomfort describes gotten worse over time. She had a right knee replaced about a year and a half ago and is done well from this. She continued be debilitated by her left knee pain. She failed conservative measures and elected proceed with left total knee arthroplasty. Description of Procedure Operative implants consist of: 1 Biomet Vanguard size 62.5 left posterior stabilized femoral component. 2. Biomet size 71 tibial tray. 3. 12 mm posterior stabilized polyethylene insert. 4. 31 x 8 all poly patella. The patient was taken the operating, identified, placed on the operating table supine position. All contact areas were appropriately padded. IV antibiotics arrived by anesthesia team. A spinal anesthetic and abductor canal block had been provided in the holding area. A Gant catheter was placed in sterile fashion. Left thigh turn was then placed in the left lower extremities then prepped and draped in usual sterile fashion. The left leg was elevated exsanguinated with use of an Esmarch in terms playset 300 mmHg. An anterior posterior left knee was then performed to longitudinal incision centered over the patella. Sharp dissection was carried through subcutaneous tissue down the extensor mechanism. Medial parapatellar arthrotomy incision was made. Subperiosteal dissection was Made medially. The fat pad was resected from Neath patella tendon. Lateral patellofemoral ligament was released and the patella was subluxated laterally. The knee was flexed. The osteophytes taken off distal femur. The ACL and PCL were then released and distal femur the tibia subluxated anteriorly. The external tibial alignment jig was then placed in the interface the tibia and adjusted 14 mm medially. Proximal tibial cut was made remove about 2 mm of bone from most deficient aspect medial tibial plateau. Tibia was sized to a size 71. Attention drawn the femur. The distal femur was entered with a sharp drill. Intramedullary canal was suction. A left 5 degree valgus cutting guide was placed. This femoral cutting block was pinned in place. Distal femoral cut was made to take an additional 3 mm of bone off distal femur. The femur was then sized to a size 62.5. The AP cutting block was pinned parallel to the epicondylar axis which was 4 degrees of external rotation. The anterior cut, anterior chamfer, posterior cut, posterior chamfer cuts were made. The box cutting guide was placed in a just slight lateral and the box cut was made. The knee was flexed. The remnants of the medial and lateral menisci were excised. The osteophytes were taken off the posterior aspect of femur. A trial femoral component was placed. The tibial tray was pinned in maximum external rotation and the drill and stem punch were used to create defect in proximal tibia for the tibial tray. The knee was then trialed and the 12 mm insert fit most appropriately. Attention drawn the patella. The patella was cleaned of all soft tissues. Patella thickness measured 21 mm in thickness and was cut down to 13. The lug holes were drilled for 31 patella. The lateral osteophytes removed. Patella button was placed. Knee was taken through range of motion patella tracked nicely with no thumbs test. Attention drawn to placing the permanent components. All trial components were removed. Bone plug was placed into the distal femur limit blood loss. A double batch Palacos G cement was mixed. Biomet Vanguard size 62.5 left posterior stabilized femoral component, size 71 tibial tray, a 12 mm pro stabilized polyethylene insert, and a 31 x 8 all Paller patella were then cemented in place. The knee was brought out into full extension till cement hardened. Final cement check was then performed. The pericapsular tissues were injected with total 100 cc of combination of 20 cc of Exparel, 30 cc normal saline, 50 cc of quarter percent Marcaine with epinephrine. Patient did receive 1 g tranexamic acid. The tourniquet was let down for final tourniquet time of 52 minutes. Hemostasis assured use electrocautery. The extensor mechanism then closed with combination 1 PDS suture #1 Vicryl suture in [id number]-zn-oqnyj fashion. Extensor mechanism checked found to be intact the subcutaneous tissues then closed with 2 Dexon suture in buried interrupted fashion skin was closed skin tania. Leg was then cleaned and dried and sterile dressing was Xeroform, 4 fours, sterile cast padding, Kade bandage were applied. Patient then transferred to the recovery room in stable condition. The patient tolerated procedure well and there were no complications. Dejuan Kiran, my physician fast food sales assistant, was present for the entire procedure. His assistance was essential and required for appropriate patient positioning, prepping and draping, surgical exposure, performing the technical details of the operation, placement the implants, closure of the wound, and placement of the sterile bandage. I attest to the content of the Intraoperative Record and any orders documented therein. Any exceptions are noted below.
--- NOTE | 2023-02-16 13:51 | XRay Report ---
XR knee LT 1 or 2V routine CLINICAL HISTORY: Surgical Post Op TECHNIQUE: 2 views of the left knee were obtained. Comparison: Comparison is made to knee radiographs 11/16/2022 FINDINGS: Patient is status post total knee arthroplasty with expected postsurgical changes including soft tiss ue swelling and subcutaneous emphysema. No periarticular lucency or hardware fracture is seen. IMPRESSION: Expected postoperative appearance status post placement of total knee arthroplasty. ACT 112: Negative or not required by law. Electronically signed by: Israel Prasad M.D. 02/16/2023 1:50 PM
[2023-02-16] MEDS: fentaNYL citrate PF 100 MCG/2 ML VIAL IV PRN ×2 (13:58→14:03)
--- NOTE | 2023-02-16 14:15 | Anesthesiology Progress Note ---
Date of Service February 16, 2023 Anesthesia Post Procedure Vital Signs Vital Signs: Temp Pulse Pulse Resp BP Pulse Ox O2 Del Method 02/16/23 14:10 77 12 107/75 94 Nasal Cannula 02/16/23 13:40 82 13 140/74 92 Room Air 02/16/23 14:00 75 14 137/75 93 Nasal Cannula 02/16/23 13:50 82 18 131/76 96 Room Air 02/16/23 13:30 36.2 C L 89 16 133/59 L 97 Oxymask 02/16/23 13:20 88 16 130/67 99 Oxymask 02/16/23 13:08 36.1 C L 97 H 14 131/66 97 Oxymask 02/16/23 09:49 36.6 C 77 20 146/76 H 95 Room Air O2 Flow Rate 02/16/23 14:10 2 02/16/23 13:40 02/16/23 14:00 2 02/16/23 13:50 02/16/23 13:30 2 02/16/23 13:20 5 02/16/23 13:08 5 02/16/23 09:49 Pain Intensity Left Leg: Pain Intensity: 4 Transfer of Care Handoff Completed per policy Notes Mental Status: alert / awake / arousable and participated in evaluation Patient Amnestic to Procedure: Yes Nausea / Vomiting: adequately controlled Pain: adequately controlled Airway Patency, RR, SpO2: stable & adequate BP & HR: stable & adequate Hydration State: stable & adequate Neuraxial Anesthesia: was administered and sensory block is resolving Anesthetic Complications: no major complications apparent and Pt Satisfied with anesthetic care
[2023-02-16] MEDS ORDERED: oxyCODONE HCL IR 5 MG TAB (IMMEDIATE RELEASE) PO PRN (14:29)
[2023-02-16] MEDS ORDERED: bisacodyL 10 MG SUPP PR PRN (14:29)
[2023-02-16] MEDS ORDERED: NALOXONE HCL 0.4 MG/1 ML VIAL/CARP IV PRN (14:29)
[2023-02-16] MEDS ORDERED: HYDROmorphone INJ 0.5 MG/0.5 ML SYR IV PRN (14:29)
[2023-02-16] MEDS ORDERED: SODIUM CHLORIDE 0.9% 1,000 ML IV SCH (14:29)
[2023-02-16] MEDS ORDERED: PHARMACY GLYCEMIC MGMT CONSULT PRN (14:29)
[2023-02-16] MEDS ORDERED: MAGNESIUM HYDROXIDE SUSP 30 ML UDC PO PRN (14:29)
[2023-02-16] MEDS ORDERED: FLUCONAZOLE 50 MG TAB PO PRN (14:29)
[2023-02-16] MEDS ORDERED: METOCLOPRAMIDE HCL INJ 5 MG/ML 2 ML VIAL IV PRN (14:29)
[2023-02-16] MEDS ORDERED: ALUMINUM/MAGNESIUM SUSP 30 ML UDC PO PRN (14:29)
[2023-02-16] MEDS ORDERED: NYSTATIN/TRIAMCIN CR 15 GM TUBE EXT PRN (14:29)
[2023-02-16] MEDS ORDERED: GLUCAGON FOR INJ 1 MG VIAL IM PRN (14:45)
[2023-02-16] MEDS ORDERED: GLUCOSE 10 TAB/TUBE PO PRN (14:45)
[2023-02-16] MEDS ORDERED: DEXTROSE 50% 50 ML SYRINGE IV PRN (14:45)
[2023-02-16] MEDS ORDERED: CARBOHYDRATES FOR HYPOGLYCEMIA PO PRN (14:45)
[2023-02-16] MEDS ORDERED: GLUCOSE 40% GEL 15 GM TUBE PO PRN (14:45)
[2023-02-16] MEDS: ACETAMINOPHEN 500 MG TAB PO SCH ×2 (14:51→21:50)
--- NOTE | 2023-02-16 14:55 | Pharmacy Report ---
Pharmacy Glycemic Short Note 2 - Date of Service February 16, 2023 - Glycemic Short BSG Results (Last 24 hours): 02/16/23 09:42 POC Glucose 155 H OUTPATIENT ANTIDIABETIC REGIMEN: * dulaglutide 1.5mg SQ weekly * metformin 1gm PO BID HbA1C: 7.3% (01/28) ASSESSMENT: * 72 year old female POD #0 left total knee arthroplasty. History of DM2. Pharmacy consulted to assist with glycemic management while inpatient. * Pre op BSG 155mg/dL, post-op- 207mg/dL. * Diet ordered, received 8mg PO dex pre-op and ordered 10mg IV X 1 dose tomorrow. * Begin Novolog ACHS moderate-severe stress scale. Will add overnight checks. Lantus 10 units X 1 given elevated post-op BSG. PLAN FOR INPATIENT GLYCEMIC CONTROL: * Hold outpatient oral diabetes medications * Basal insulin * Lantus 10 units SQ X 1 * Bolus insulin * NovoLog per scale ACHS or Q6hrs while NPO * Goal Range: Low 110 mg/dL - High 140 mg/dL * Correction Factor: 20 mg/dL/unit * Nutritional / Prandial insulin per carb ratio of 1 unit per 6 grams CHO consumed
[2023-02-16] MEDS ORDERED: LANTUS PER UNIT CHARGE SC ONE (15:00)
[2023-02-16] MEDS: ASCORBIC ACID 500 MG TAB PO SCH (16:30)
[2023-02-16] MEDS: KETOROLAC TROMETHAMINE 15 MG/ML VIAL IV SCH ×2 (16:30→21:49)
[2023-02-16] MEDS ORDERED: INSULIN ASPART PER UNIT CHARGE SC SCH (16:30)
[2023-02-16] MEDS: INSULIN ASPART PER UNIT CHARGE SC SCH ×3 (17:12→23:59)
[2023-02-16] MEDS ORDERED: TRANEXAMIC ACID / 0.7% NACL 1,000 MG/100 ML BAG IV SCH (19:15)
[2023-02-16] MEDS: ceFAZolin 2000MG 2,000 MG/15 ML SYR IV SCH (19:33)
[2023-02-16] MEDS: DOCUSATE SODIUM 100 MG CAP PO SCH (20:32)
[2023-02-16] MEDS: ASPIRIN 81 MG ECTAB PO SCH (20:32)
[2023-02-16] MEDS ORDERED: SENNA 8.6 MG TAB PO SCH (21:00)
[2023-02-17] MEDS: INSULIN ASPART PER UNIT CHARGE SC SCH ×3 (03:40→11:47)
[2023-02-17] MEDS: ceFAZolin 2000MG 2,000 MG/15 ML SYR IV SCH (03:41)
[2023-02-17] MEDS: KETOROLAC TROMETHAMINE 15 MG/ML VIAL IV SCH ×2 (03:41→10:08)
[2023-02-17] MEDS: ACETAMINOPHEN 500 MG TAB PO SCH (06:00)
[2023-02-17 07:14] LABS: Hematocrit (blood only) 28.4 % (37.0-47.0); Hemoglobin 9.3 g/dl (12.0-16.0); Mean Corpuscular Hemoglobin 27.6 pg (25.0-34.0); Mean Corpuscular Hgb Conc 32.7 g/dL (32.0-36.0); Mean Corpuscular Volume 84.3 fL (80.0-100.0); Mean Platelet Volume 9.7 fL (9.4-12.4); Platelet Count 294 K/uL (130-400); RDW Coefficient of Variation 15.3 % (11.5-14.5); RDW Standard Deviation 46.8 fL (36.4-46.3); Red Blood Count 3.37 M/uL (4.20-5.40)
[2023-02-17 07:39] LABS: BUN Creatinine Ratio 38.6 (10-20); Calcium 8.5 mg/dl (8.6-10.3); Creatinine Clr Calc Pharmacy 85.3 ml/min; Est GFR (African American) 99.6 ml/min; Potassium 3.5 mmol/L (3.5-5.1)
[2023-02-17] MEDS: DOCUSATE SODIUM 100 MG CAP PO SCH (07:41)
[2023-02-17] MEDS: ASPIRIN 81 MG ECTAB PO SCH (07:41)
[2023-02-17] MEDS: ASCORBIC ACID 500 MG TAB PO SCH (07:41)
[2023-02-17] MEDS ORDERED: dexAMETHasone 10 MG in SYRINGE 0 ML IV SCH (08:00)
[2023-02-17] MEDS ORDERED: LOSARTAN/HCTZ 50/12.5MG TAB PO SCH (09:00)
[2023-02-17] MEDS ORDERED: ROSUVASTATIN CALCIUM 5 MG TAB PO SCH (09:00)
[2023-02-17] MEDS ORDERED: LANTUS PER UNIT CHARGE SC SCH (09:00)
[2023-02-17] MEDS ORDERED: MULTIVITAMIN TAB PO SCH (09:00)
[2023-02-17] MEDS ORDERED: NON-FORMULARY MEDICATION (Multivit-Min-Iron-Fa-Vit K-Lut [Centrum Silver Women] 8 mg iron- PO SCH (09:00)
--- NOTE | 2023-02-17 10:54 | Orthopedic Progress Note ---
Date of Service February 17, 2023 Assessment & Plan (1) Status post left knee replacement: 72-year-old female postop day 1 from left knee replacement doing remarkably well. Pains been very well controlled. Therapy went well. She is hoping to be discharged to [facility] for a brief rehab stay. Plan: 1 DVT prophylaxis including thigh-high teds, SCDs, aspirin twice a day. 2. PT OT. Weight-bear as tolerated left total knee protocol. 3. Pain control doing okay with current pain regimen. 4. Disposition plan to discharge to [facility] once bed available and accepted and approved. Subjective . 72-year-old female postop day 1 from a left knee replacement. She is doing quite well. Had a good night. Pain has been fairly minimal. Therapy is going well. No chest pain or shortness of breath. Not feeling dizzy or lightheaded. Review of Systems All systems reviewed & are unremarkable except as noted in HPI & below. Physical Exam . Examination reveals a pleasant elderly female sitting up in her bedside chair. She looks comfortable. Examination left leg reveals a dressing clean dry and intact patient can dorsiflex and plantarflex her foot appropriately. She can do a pretty good straight leg raise. Respiratory normal respiratory effort, lungs clear to auscultation Cardiovascular RRR, no murmur, no edema Gastrointestinal (Abdomen) normal bowel sounds, soft, nontender, no hepatosplenomegaly Results & Data Results & Data Laboratory Results . Hemoglobin is 9.3. Hematocrit is 28.4. Electrolytes are stable. Diagnostic Findings . PG Care Time/CCT Total # of Minutes Spent Total Time Spent with Patient: Total time spent is greater than 50% in coordination of care (as documented) at patient's floor/unit and/or counseling patient: Coding Level of Care Code 07294 Post Operative Follow-Up Diagnoses Status post left knee replacement Z96.652
== END 2023-02-17 14:00 ==
LOC: ASU 09:04 → INTOOBSV 13:09 → 3E 13:09